=== PATIENT | male | born 1990 | race Caucasian/White ===

== ENCOUNTER 2025-04-05 11:16 | Day surgery (SDC) | payer OTHER ==
[2025-04-03 13:40] VITALS: BMI 29.2
[2025-04-05 13:34] VITALS: RESP 18; TEMP 97.8
[2025-04-05 13:39] VITALS: BP 120/74; PULSE 94
== END 2025-04-05 13:35 | disposition home or self-care (01) ==
LOC: FASU-ENDO 11:16
PROVIDERS: ATTEND Internal Medicine Gastroenterology
PROC: 0DB68ZX Excision of Stomach, Via Natural or Artificial Opening Endoscopic, Diagnostic (ICD-10-PCS; 2025-04-05)
PROC: 0DB98ZX Excision of Duodenum, Via Natural or Artificial Opening Endoscopic, Diagnostic (ICD-10-PCS; principal; 2025-04-05 12:36)
DX: K29.50 Unspecified chronic gastritis without bleeding (principal)
CPT/HCPCS: 82962; 88305-TC; 88342-TC